=== PATIENT | female | born 1980 | race Caucasian/White ===

== ENCOUNTER 2018-06-18 23:19 | Emergency (ER) | payer BC ==
[~2018-06-18] VITALS: Ht 172.7 cm; Wt 104.3 kg
[2018-06-18] MEDS ORDERED: IBUPROFEN 600600 M1 PO (23:32)
[2018-06-19 01:39] VITALS: BP 145/85
== END 2018-06-19 01:40 | disposition home or self-care (01) ==
LOC: M.ERS 23:19
DX: R60.0 Localized edema (principal); Z88.5 Allergy status to narcotic agent; Z88.6 Allergy status to analgesic agent